=== PATIENT | male | born 1980 | race Caucasian/White ===

== ENCOUNTER 2016-12-11 03:18 | Emergency (ER) | payer OTHER, BC ==
--- NOTE | 2016-12-11 03:21 | PDOC ---
History of Present Illness - General Chief Complaint: Injury Stated Complaint: LT KNEE/BACK PAIN Time Seen by Provider: 12/11/16 03:21 - History of Present Illness Initial Comments: 12/11/16 03:38 This otherwise healthy 36-year-old man, [place] [employer] [place] [employer], presents with injury that he sustained at work just prior to presentation. 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 He was able to walk after the injury but subsequently felt sharp pain intermittently, mostly in the lateral and posterior aspect of the left knee . Patient previously hyperextended one of his knees (is unsure laterality) in high school but no other history of knee issues. He did not hit his head or other area of his body during the fall. He has had mild left-sided lower back pain since impact. Medications Cetirizine daily (for environmental ALLERGIES) Past History - Past Medical History Allergies/Adverse Reactions: Allergies Allergy/AdvReac Type Severity Reaction Status Date / Time nut - unspecified Allergy Severe Verified 01/03/16 07:41 NUTS Allergy Severe Uncoded 01/03/16 07:22 Home Medications: Ambulatory Orders Cetirizine HCl [Zyrtec] 10 mg PO PRN PRN 07/22/11 Diclofenac Sodium 75 mg PO BID PRN #20 tablet. 12/11/16 Asthma: Yes - Psycho/Social/Smoking Cessation Hx Anxiety: No Suicidal Ideation: No Smoking Status: No Smoking History: Never smoked Have you smoked in the past 12 months: No Number of Cigarettes Smoked Daily: 0 Hx Alcohol Use: No Drug/Substance Use Hx: No Substance Use Type: None Review of Systems - Review of Systems Able to Perform ROS?: Yes Comments:: 12 point review of systems is negative except for what is noted in the history of present illness *Physical Exam - Physical Exam Comments: GENERAL: Adult male, alert and oriented 3, in no acute distress HEAD: Normal with no signs of trauma. EYES: PERRLA, EOMI, sclera anicteric, conjunctiva clear. ENT: Ears normal, nares patent, oropharynx clear without exudates. Dry mucous membranes. NECK: Normal range of motion, supple without lymphadenopathy, JVD, or masses. LUNGS: Breath sounds equal, clear to auscultation bilaterally. No wheezes, and no crackles. HEART:Regular rate and rhythm, normal S1 and S2 without murmur, rub or gallop. ABDOMEN:.normal bowel sounds No guarding,tenderness or rebound.No masses No distention. EXTREMITIES: Left lower extremitymild edema, no deformity or ecchymosis; Mild pain laterally with varus stressing; no ligamentous instability Mild tenderness with palpation biceps femoris tendon laterally Mild tenderness lateral aspect of to region without cords or masses Extremity exam otherwise normal NEUROLOGICAL: Cranial nerves II through XII grossly intact. Normal speech. No focal neurological deficits. MUSCULOSKELETAL: Back non-tender to palpation, no CVA tenderness SKIN: Warm, Dry, normal turgor, no rashes or lesions noted. Progress Note - Progress Note Progress Note: 3 position x-ray of the left knee performed. Interpretation by Imaging organizational development consultant: No evidence of acute bony pathology Clinical presentation most consistent with knee sprain. Knee immobilizer placed on knee. Patient advised to keep the knee immobilizer in place while ambulating until evaluation by orthopedist. When at rest, knee should be elevated and iced for the next 48 hours Patient should not work until evaluation by orthopedist (work documentation provided). Patient currently does not have orthopedist. Doctor's Jason are coupon and bond collection clerk ; referral information will be provided for the patient. He should call on December 13 make appointment for follow-up within the week. Patient can take OTC ibuprofen/naproxen. Also, prescription for diclofenac 75 mg twice a day as needed, transmitted to pharmacy *DC/Admit/Observation/Transfer Diagnosis at time of Disposition: Sprain and strain of knee and leg - Discharge Dispostion Disposition: HOME Condition at time of disposition: Stable - Prescriptions Prescriptions: Diclofenac Sodium 75 mg PO BID PRN #20 tablet.dr PRITCHARD Reason: Moderate Pain - Referrals Referrals: Ezio Hernandez MD [Primary Care Provider] - Finn Godfrey MD [Staff Physician] - - Patient Instructions Printed Discharge Instructions: Knee Sprain Additional Instructions: Knee immobilizer when ambulating until seen by orthopedist Elevation/ice to knee when at rest as much as possible for the next 48 hours Diclofenac 75 mg twice a day as needed for pain (take with food) No work until evaluation by orthopedist Call orthopedic office (Drs. Godfrey/Timothy) on December 13 to make appointment within 5 days Return to ER if you have severe pain/swelling in knee - Post Discharge Activity Work/School Note: Back to Work
[2016-12-11 03:43] VITALS: BP 138/88; PULSE 93; TEMP 98.7; BMI 32.5
[2016-12-11] MEDS ORDERED: KETOROLAC TROMETHAMINE 60 MG/2 ML VIAL IM ONE (04:24)
[2016-12-11] MEDS ORDERED: KETOROLAC TROMETHAMINE 60 MG/2 ML VIAL ONE (04:25)
== END 2016-12-11 05:20 | disposition home or self-care (01) ==
LOC: FER 03:18
PROC: 3E0233Z Introduction of Anti-inflammatory into Muscle, Percutaneous Approach (ICD-10-PCS; principal; 2016-12-11)
PROC: 2W3RX1Z Immobilization of Left Lower Leg using Splint (ICD-10-PCS; 2016-12-11)
DX: S83.92XA Sprain of unspecified site of left knee, initial encounter (principal); Y35.891A Legal intervention involving other specified means, law enforcement official injured, initial encounter; W18.39XA Other fall on same level, initial encounter; Y93.02 Activity, running; Y92.481 Parking lot as the place of occurrence of the external cause; Y99.0 Civilian activity done for income or pay; J45.909 Unspecified asthma, uncomplicated
CPT/HCPCS: 73562-TC-LT; 99282-25

== ENCOUNTER 2017-05-30 08:08 | Emergency (ER) | payer BC, OTHER ==
[2017-05-30 08:13] VITALS: TEMP 98; BMI 33.5
[2017-05-30] MEDS ORDERED: ONDANSETRON 4 MG/2 ML VIAL IVPB ONE (08:26)
[2017-05-30] MEDS ORDERED: SODIUM CHLORIDE 1,000 ML IV ONE (08:26)
[2017-05-30] MEDS ORDERED: morphine CARPU-JECT 4 MG/1 ML DISP.SYRIN IVPUSH ONE (08:26)
[2017-05-30] MEDS ORDERED: morphine CARPU-JECT 8 MG/1 ML DISP.SYRIN ONE (08:30)
[2017-05-30] MEDS ORDERED: ONDANSETRON 4 MG/2 ML VIAL ONE ×2 (08:31→08:39)
[2017-05-30 08:38] LABS: BASO % 0.4 % (0-2.0); EOS % 1.4 % (0-4.5); MCHC 33.1 g/dl (32.0-35.9); MEAN CELL VOLUME 81.7 fl (80-96); NEUT % 54.6 % (42.8-82.8); PLATELET COUNT 184 K/MM3 (134-434); WHITE BLOOD COUNT 5.4 K/mm3 (4.0-10.0)
--- NOTE | 2017-05-30 08:49 | PDOC ---
History of Present Illness - General History Source: Patient Exam Limitations: No Limitations - History of Present Illness Initial Comments: 05/30/17 09:05 The patient is a 36 year old male, with no significant past medical history who presents to the emergency department with RUQ abdominal pain today. Patient woke up in his usual state of health this morning until he went to work and experienced sudden onset of RUQ abdominal pain. Patient reports sharp, pressure like, abdominal pain, radiating to the back with associated nausea and diaphoresis. Patient reports pain is exacerbated upon deep inspiration. Patient notes similar episode in the past with negative workup. Patient states the pain is similar in nature and presents to the ED for further evaluation. Patient denies chest pain, headache or dizziness. Patient denies fever, chills, abdominal pain, vomit, diarrhea or constipation. Patient denies dysuria, frequency, urgency or hematuria. Patient denies sick contacts or recent travel. Allergies: Nuts Past surgical history: None Social history: Occasional EtOH use, [employer] PCP: None <Linda Lr - Last Filed: 05/30/17 10:17> <Germain Hernandez - Last Filed: 05/30/17 11:25> - General Chief Complaint: Pain Stated Complaint: ABDOMINAL PAIN Time Seen by Provider: 05/30/17 08:17 Past History <Linda Lr - Last Filed: 05/30/17 10:17> - Past Medical History Asthma: Yes COPD: No - Suicide/Smoking/Psychosocial Hx Smoking Status: No Smoking History: Never smoked Have you smoked in the past 12 months: No Number of Cigarettes Smoked Daily: 0 Information on smoking cessation initiated: No Hx Alcohol Use: No Drug/Substance Use Hx: No Substance Use Type: None <Germain Hernandez - Last Filed: 05/30/17 11:25> - Past Medical History Allergies/Adverse Reactions: Allergies Allergy/AdvReac Type Severity Reaction Status Date / Time nut - unspecified Allergy Severe Verified 05/30/17 08:10 Fish Containing Products Allergy Verified 05/30/17 08:10 NUTS Allergy Severe Uncoded 05/30/17 08:10 Home Medications: Ambulatory Orders Cetirizine HCl [Zyrtec] 10 mg PO PRN PRN 07/22/11 L.acidoph,Paracasei, B.lactis [Probiotic] 1 each PO PRN PRN 05/30/17 Review of Systems - Review of Systems Constitutional: No: Chills, Fever Respiratory: No: Cough, Shortness of Breath Cardiac (ROS): No: Chest Pain ABD/GI: Yes: See HPI, Nausea. No: Blood Streaked Bowels, Diarrhea, Vomiting : No: Dysuria, Hematuria All Other Systems: Reviewed and Negative <Germain Hernandez - Last Filed: 05/30/17 11:25> *Physical Exam - Vital Signs Last Vital Signs Temp Pulse Resp BP Pulse Ox 98.0 F 80 18 144/101 100 05/30/17 08:10 05/30/17 08:10 05/30/17 08:10 05/30/17 08:10 05/30/17 08:10 - Physical Exam Comments: 05/30/17 09:06 GENERAL: The patient is awake, alert, and fully oriented, in no acute distress. HEAD: Normal with no signs of trauma. EYES: Pupils equal, round and reactive to light, extraocular movements intact, sclera anicteric, conjunctiva clear with no pallor. ENT: Ears normal, nares patent, oropharynx clear without exudates. Moist mucous membranes. NECK: Normal range of motion, supple without lymphadenopathy, JVD, or masses. LUNGS: Breath sounds equal, clear to auscultation bilaterally. No wheeze/ crackles. HEART: Regular rate and rhythm, normal S1 and S2 without murmur or rub. ABDOMEN: +Minimal L CVA discomfort. +RUQ tenderness with guarding. + Positive [place] sign. Soft/nontender/nondistended. BS wnl. No rebound. No palpable masses. No hepatosplenomegaly. EXTREMITIES: Normal range of motion, no edema. No clubbing or cyanosis. No cords, erythema, or tenderness. NEUROLOGICAL: Cranial nerves II through XII grossly intact. Normal speech, normal gait. PSYCH: Normal mood, normal affect. SKIN: Warm, Dry, normal turgor, no rashes or lesions noted. <Linda Lr - Last Filed: 05/30/17 10:17> - Vital Signs Last Vital Signs Temp Pulse Resp BP Pulse Ox 98.0 F 80 18 144/101 100 05/30/17 08:10 05/30/17 08:10 05/30/17 08:10 05/30/17 08:10 05/30/17 08:10 <Germain Hernandez - Last Filed: 05/30/17 11:25> Heart Score/ECG Review #1 ECG reviewed & interpreted by me at: 08:09 General ECG Interpretation: Sinus Rhythm, Normal Rate (75), Normal Intervals ( qtc 435), No acute ischemic changes <Germain Hernandez - Last Filed: 05/30/17 11:25> ED Treatment Course - LABORATORY CBC & Chemistry Diagram: 05/30/17 08:30 05/30/17 08:30 - ADDITIONAL ORDERS Additional order review: Laboratory Results 05/30/17 08:30 Sodium 141 Potassium 3.8 Chloride 108 H Carbon Dioxide 23 Anion Gap 10 BUN 21 H Creatinine 0.9 Creat Clearance w eGFR > 60 Random Glucose 102 Calcium 8.6 Total Bilirubin 0.3 AST 10 L ALT 34 Alkaline Phosphatase 91 Total Protein 7.2 Albumin 4.0 Lipase 83 05/30/17 08:30 RBC 5.42 MCV 81.7 MCHC 33.1 RDW 13.0 MPV 8.0 Neutrophils % 54.6 Lymphocytes % 35.0 Monocytes % 8.6 Eosinophils % 1.4 Basophils % 0.4 - Medications Given in the ED: ED Medications Discontinued Medications Generic Name Dose Route Start Last Admin Trade Name Yusra PRN Reason Stop Dose Admin Morphine Sulfate 4 mg 05/30/17 08:26 05/30/17 08:34 Morphine Injection - IVPUSH 05/30/17 08:27 4 mg ONCE ONE Administration Ondansetron HCl 8 mg 05/30/17 08:26 05/30/17 08:34 Zofran Injection IVPB 05/30/17 08:27 8 mg ONCE ONE Administration <Linda Lr - Last Filed: 05/30/17 10:17> - LABORATORY CBC & Chemistry Diagram: 05/30/17 08:30 05/30/17 08:30 - ADDITIONAL ORDERS Additional order review: 05/30/17 08:30 RBC 5.42 MCV 81.7 MCHC 33.1 RDW 13.0 MPV 8.0 Neutrophils % 54.6 Lymphocytes % 35.0 Monocytes % 8.6 Eosinophils % 1.4 Basophils % 0.4 - RADIOLOGY Radiology Studies Ordered: Category Date Time Status CHEST X-RAY PORTABLE* [RAD] Stat Radiology 05/30/17 08:26 Ordered GALLBLADDER US [US] Stat Ultrasound 05/30/17 08:26 Ordered - Medications Given in the ED: ED Medications Discontinued Medications Generic Name Dose Route Start Last Admin Trade Name Yusra PRN Reason Stop Dose Admin Morphine Sulfate 4 mg 05/30/17 08:26 05/30/17 08:34 Morphine Injection - IVPUSH 05/30/17 08:27 4 mg ONCE ONE Administration Ondansetron HCl 8 mg 05/30/17 08:26 05/30/17 08:34 Zofran Injection IVPB 05/30/17 08:27 8 mg ONCE ONE Administration <Germain Hernandez - Last Filed: 05/30/17 11:25> Medical Decision Making - Medical Decision Making 05/30/17 09:21 CXR Impression. No evidence of active pulmonary disease Reported By: Roman Rosales MD 05/30/17 0853 05/30/17 10:17 Gallbladder US IMPRESSION: Diffuse fatty infiltration of the liver. Reported By: Juan C Moseley MD 05/30/17 1003 <Linda Lr - Last Filed: 05/30/17 10:17> - Medical Decision Making 05/30/17 08:49 A portion of this note was documented by scribe services under my direction. I have reviewed the details of the note, within reason, and agree with the documentation with the following case summary and management plan written by me. Healthy 36-year-old male with no significant past medical or surgical history presents with relatively acute onset of right upper quadrant pain with nausea and diaphoresis this morning, persistent mild pain with intermittent sharp exacerbations. No cardiac pulmonary complaints, felt a little lightheaded and nauseous, pain is pressure-like and radiating to the right flank. Last meal was last night, has had similar pain in the past and states he had a CAT scan earlier this year that was reportedly unremarkable. Occasionally gets stomach upset after large meals, no abdominal surgical history. Vitals as noted and normal Well-appearing seated in stretcher, intermittent distress from right upper quadrant pain Abdomen is soft and nondistended, tender with guarding in the right upper quadrant with positive Mensah's. Less notable right CVA discomfort. No leg edema 36-year-old male with acute onset right upper quadrant pain, seems suspicious for biliary colic, question PUD/gastritis, question renal colic. Less likely cardiopulmonary in etiology. Labs, urinalysis EKG, chest x-ray Vital quadrant ultrasound Pain control, nausea control Reassess 05/30/17 09:47 labs wnl, no leukocytosis, LFT normal, lipase normal. CXR normal. Pending RUQ sono, reassess. 05/30/17 10:54 Ultrasound shows fatty liver but no cholelithiasis or other acute pathology. UA sent, will distal accordingly. Symptoms have markedly improved, abdomen benign now. Question sphincter spasm given the biliary colic mimic, we will reassess and dispo accordingly. 05/30/17 11:19 UA normal, no blood. Feels well. Discussed need for f/u with GI, will give referral. Understands return criteria. Tolerated PO here. <Germain Hernandez - Last Filed: 05/30/17 11:25> *DC/Admit/Observation/Transfer - Attestations Scribe Attestion: 05/30/17 09:06 Documentation prepared by Linda Lr, acting as medical cost consultant for Germain Hernandez MD <Linda Lr - Last Filed: 05/30/17 10:17> <Germain Hernandez - Last Filed: 05/30/17 11:25> Diagnosis at time of Disposition: Right upper quadrant abdominal pain - Discharge Dispostion Disposition: HOME Condition at time of disposition: Improved - Referrals Referrals: Zach Medina MD [Staff Physician] - - Patient Instructions Printed Discharge Instructions: DI for General Gallbladder Conditions, DI for Abdominal Pain-Adult Additional Instructions: Activity as tolerated. Stay hydrated. Tylenol 1000 mg every 8 hours and/or ibuprofen 600 mg every 8 hours as needed for pain. Blood tests, a urine test, and an ultrasound of the gallbladder showed no acute abnormalities. As discussed, your symptoms did seem consistent with gallbladder (biliary) colic. Without stones, this could be due to sphincter spasm or sludge not seen on the ultrasound. Continue your medications as previously prescribed by your physician. Maintain low fat diet for now. You should follow up with your primary doctor and a GI specialist (consider calling Dr. Medina) as soon as possible regarding today's emergency department visit. Return to the emergency department for any new or concerning symptoms, particularly persistent or worsening pain, vomiting or bloody vomit, fever/ chills, difficulty breathing.
[2017-05-30 09:03] LABS: ALK PHOS 91 U/L (45-117); ANION GAP 10 (8-16); BILIRUBIN,TOTAL 0.3 mg/dL (0.2-1.0); CALCIUM 8.6 mg/dL (8.5-10.1); CO2 23 mmol/L (21-32); CREATININE 0.9 mg/dL (0.7-1.3); GLUCOSE,RANDOM 102 mg/dL (74-106); SGOT/AST 10 U/L (15-37); SGPT/ALT 34 U/L (12-78); TOT PROT 7.2 g/dl (6.4-8.2)
[2017-05-30 11:01] LABS: URINE APPEARANCE CLEAR; URINE BILIRUBIN NEGATIVE (NEGATIVE); URINE BLOOD NEGATIVE (NEGATIVE); URINE COLOR YELLOW; URINE GLUCOSE (UA) NEGATIVE (NEGATIVE); URINE KETONE NEGATIVE (NEGATIVE); URINE LEUK ESTERASE NEGATIVE (NEGATIVE); URINE NITRITE NEGATIVE (NEGATIVE); URINE PROTEIN NEGATIVE (NEGATIVE); URINE UROBILINOGEN NEGATIVE mg/dL (0.2-1.0)
[2017-05-30 12:01] VITALS: BP 121/72; PULSE 64
[2017-05-30 15:54] LABS: URINE LEUK ESTERASE Negative (NEGATIVE)
--- NOTE | 2017-05-31 01:24 | EKG ---
Test Reason : Blood Pressure : / mmHG Vent. Rate : 075 BPM Atrial Rate : 075 BPM P-R Int : 162 ms QRS Dur : 092 ms QT Int : 390 ms P-R-T Axes : 040 000 008 degrees QTc Int : 435 ms NORMAL SINUS RHYTHM NORMAL ECG NO PREVIOUS ECGS AVAILABLE Confirmed by VINITA SKINNER MD ([id number]) on 05/31/2017 1:24:08 AM Referred By: Confirmed By:VINITA SKINNER MD
== END 2017-05-30 12:01 | disposition home or self-care (01) ==
LOC: JER 08:08
PROC: 3E033GC Introduction of Other Therapeutic Substance into Peripheral Vein, Percutaneous Approach (ICD-10-PCS; principal; 2017-05-30)
PROC: 3E033NZ Introduction of Analgesics, Hypnotics, Sedatives into Peripheral Vein, Percutaneous Approach (ICD-10-PCS; 2017-05-30)
DX: R10.11 Right upper quadrant pain (principal); R61 Generalized hyperhidrosis
CPT/HCPCS: 36415; 71010-TC; 76705-TC; 80053; 81003; 83690; 85025; 93005; 93010; 99282-25

== ENCOUNTER 2017-06-09 07:01 | Day surgery (SDC) | payer BC ==
[2017-06-08 14:07] VITALS: BMI 33.5
[2017-06-09] MEDS ORDERED: PROPOFOL 20 ML ONE ×2 (07:49)
[2017-06-09] MEDS ORDERED: LIDOCAINE HCL 2% (20ML MULTI-DOSE VIAL) NR ONE (07:49)
--- NOTE | 2017-06-09 08:23 | PROC ---
Endoscopy Procedure Endoscopy procedure completed. Please see scanned procedure report.
[2017-06-09 08:28] VITALS: TEMP 98.6
[2017-06-09 11:38] VITALS: BP 128/74; PULSE 80
--- NOTE | 2017-06-10 13:01 | PATH ---
Surgical Pathology Report Patient Name: NANI GOULD [facility]. Rec. #: [id number] /Age/Gender: 1980 (Age: 36) / M Account: [id number] Location: U-ENDOSCOPY Taken: 06/09/2017 Received: 06/09/2017 Reported: 06/10/2017 Physicians: Zach Medina M.D. Specimen(s) Received A: BX DUODENUM B: BX ANTRUM/BODY C: BX CARDIA D: BX MID ESOPHAGUS Clinical History Preoperative diagnosis: Abdominal pain Postoperative diagnosis: Gastritis Final Diagnosis A. DUODENUM, BIOPSY: DUODENAL MUCOSA WITH PROMINENT LYMPHOID AGGREGATE. B. STOMACH, ANTRUM/BODY, BIOPSY: GASTRIC ANTRAL AND BODY MUCOSA WITH MILD CHRONIC GASTRITIS. IMMUNOHISTOCHEMICAL STAIN FOR H. PYLORI IS NEGATIVE. C. STOMACH, CARDIA, BIOPSY: GASTRIC CARDIAC TYPE MUCOSA WITH MILD CHRONIC GASTRITIS. IMMUNOHISTOCHEMICAL STAIN FOR H. PYLORI IS NEGATIVE. D. MID ESOPHAGUS BIOPSY: SQUAMOUS MUCOSA WITH MILD VASCULAR CONGESTION. Electronically Signed Heavenly Pichardo M.D. Gross Description A. Received in formalin, labeled "biopsy duodenum" are 2 colmenares, irregular portions of soft tissue measuring 0.3 and 0.5 cm. in greatest dimension. The specimens are submitted in toto in one cassette. B. Received in formalin, labeled "biopsy antrum/body" are 2 colmenares, irregular portions of soft tissue measuring 0.2 and 0.3 cm. in greatest dimension. The specimens are submitted in toto in one cassette. C. Received in formalin, labeled "biopsy cardia" are 2 colmenares, irregular portions of soft tissue averaging 0.2 cm. in greatest dimension. The specimens are submitted in toto in one cassette. D. Received in formalin, labeled "biopsy midesophagus" is a colmenares, irregular portion of soft tissue measuring 0.3 cm. in greatest dimension. The specimen is submitted in toto in one cassette. 06/09/201706/09/2017
== END 2017-06-09 09:05 | disposition home or self-care (01) ==
LOC: JASU-ENDO 07:01
PROVIDERS: ATTEND Internal Medicine Gastroenterology
PROC: 0DB68ZX Excision of Stomach, Via Natural or Artificial Opening Endoscopic, Diagnostic (ICD-10-PCS; 2017-06-09)
PROC: 0DB58ZX Excision of Esophagus, Via Natural or Artificial Opening Endoscopic, Diagnostic (ICD-10-PCS; 2017-06-09)
PROC: 0DB98ZX Excision of Duodenum, Via Natural or Artificial Opening Endoscopic, Diagnostic (ICD-10-PCS; principal; 2017-06-09 08:00)
DX: K29.70 Gastritis, unspecified, without bleeding (principal); K44.9 Diaphragmatic hernia without obstruction or gangrene
CPT/HCPCS: 88305-TC; 88342-TC